=== PATIENT | female | born 1940 | race Hispanic/Latino ===

== ENCOUNTER 2017-09-14 10:58 | Emergency (ER) | payer MEDICARE ==
[2017-09-14 11:21] VITALS: BP 130/86; PULSE 77; RESP 20; TEMP 97.9; O2SAT 96
--- NOTE | 2017-09-14 11:59 | ED PDOC ---
Upper Extremity Pain/Injury Time Seen by Provider: 09/14/17 11:56 Chief Complaint (Nursing): Finger,Hand,&Wrist Chief Complaint (Provider): wrist pain bilateral History Per: Patient (76 y/o female h/o emphysema here with bilateral wrist pain alternating wrists. Denies any falls. Tried taking advil yesterday/pain only moderately controlled.) Past Medical History Reviewed: Historical Data, Nursing Documentation, Vital Signs Vital Signs: Last Vital Signs Temp 97.9 F 09/14/17 11:15 Pulse 77 09/14/17 11:15 Resp 20 09/14/17 11:15 BP 130/86 09/14/17 11:15 Pulse Ox 96 09/14/17 11:15 - Medical History PMH: Emphysema - Surgical History Surgical History: Cholecystectomy - Family History Family History: States: No Known Family Hx - Home Medications Home Medications: Ambulatory Orders Medication Instructions Recorded Naproxen 375 mg PO Q8 PRN #21 tablet 09/14/17 - Allergies Allergies/Adverse Reactions: Allergies Allergy/AdvReac Type Severity Reaction Status Date / Time No Known Allergies Allergy Verified 09/14/17 11:15 Review of Systems ROS Statement: Except As Marked, All Systems Reviewed And Found Negative Physical Exam - Reviewed Nursing Documentation Reviewed: Yes Vital Signs Reviewed: Yes - Physical Exam Appears: Positive for: Well, Non-toxic, No Acute Distress Head Exam: Positive for: ATRAUMATIC, NORMAL INSPECTION, NORMOCEPHALIC Skin: Positive for: Normal Color, Warm, DRY Eye Exam: Positive for: EOMI, Normal appearance, PERRL ENT: Positive for: Normal ENT Inspection Neck: Positive for: Normal, Painless ROM Cardiovascular/Chest: Positive for: Regular Rate, Rhythm Respiratory: Positive for: CNT, Normal Breath Sounds Gastrointestinal/Abdominal: Positive for: Normal Exam, Soft Back: Positive for: Normal Inspection Extremity: Positive for: Normal ROM, Swelling (right volar wrist with swelling mild. deviation noted at bilateral hands MCP joint suggestive of rheumatoid arthritis.) Neurologic/Psych: Positive for: Alert, Oriented - ECG O2 Sat by Pulse Oximetry: 96 - Progress ED Course And Treament: xry wrist bilateral: No fx. Osteopenia noted. Disposition - Clinical Impression Clinical Impression: Arthritis - Patient ED Disposition Is Patient to be Admitted: No - Disposition Referrals: Og Dykes MD [Staff Provider] - Disposition Time: 12:27 Condition: FAIR Prescriptions: Naproxen 375 mg PO Q8 PRN #21 tablet PRN Reason: Pain, Moderate (4-7) Instructions: Rheumatoid Arthritis (DC) Forms: [employer] (German)
--- NOTE | 2017-09-14 12:30 | RAD ---
PROCEDURE: Bilateral Wrists Radiographs. HISTORY: wrist pain COMPARISON: None. FINDINGS: BONES: Right Carpal Bones: Normal. No fracture or degenerative changes. Left Carpal Bones: Normal. No fracture or degenerative changes. Right Distal Radius and Ulna: No fracture or degenerative changes. Left Distal Radius and Ulna: No fracture or degenerative changes. JOINT SPACES: Right Wrist: Normal. No degenerative changes. Left Wrist: Normal. No degenerative changes. SOFT TISSUES: Right Wrist: Normal. Left Wrist: Normal. OTHER FINDINGS: None. IMPRESSION: Normal radiographs of the wrists.
== END 2017-09-14 12:56 | disposition home or self-care (01) ==
LOC: H.ER 10:58
DX: M19.031 Primary osteoarthritis, right wrist (principal); M19.032 Primary osteoarthritis, left wrist; J43.9 Emphysema, unspecified

== ENCOUNTER 2018-02-25 19:07 | Emergency (ER) | payer MEDICARE ==
[2018-02-25 19:14] VITALS: RESP 18; TEMP 98.3
--- NOTE | 2018-02-25 20:12 | ED PDOC ---
HPI: General Adult Time Seen by Provider: 02/25/18 19:13 Chief Complaint (Nursing): Hip Pain Chief Complaint (Provider): Hip Pain, Back Pain, Dizziness History Per: Patient History/Exam Limitations: no limitations Onset/Duration Of Symptoms: Hrs Current Symptoms Are (Timing): Still Present Additional Complaint(s): 77 year old female presents to the ED with complaints of dizziness, low back pain, and right hip pain onset 2 hours prior to arrival. States she was lying on the couch, rolled onto her side, and then developed hip pain. She noted the back pain and dizziness. Approximately 1 month ago patient had aneurysm repair at [facility] with extensive stay for rehab. Patient has not been able to walk since and has been incontinent since. Otherwise there were no complications. Denies any syncope, falls, trauma, chest pain, or difficulty breathing. Patient lives with family, who help take care of her. PMD: Dr. Miguel Angel Tolbert Medications: Methylprednisolone, Lisinopril, Gabapentin, methotrexate Past Medical History Reviewed: Historical Data, Nursing Documentation, Vital Signs Vital Signs: Last Vital Signs Temp 98.3 F 02/25/18 19:09 Pulse 90 02/25/18 19:09 Resp 18 02/25/18 19:09 BP 156/98 H 02/25/18 19:09 Pulse Ox 98 02/25/18 19:09 - Medical History PMH: Emphysema - Surgical History Surgical History: Cholecystectomy - Family History Family History: States: No Known Family Hx - Social History Current smoker - smoking cessation education provided: Yes (Heavy) - Home Medications Home Medications: Ambulatory Orders Medication Instructions Recorded Bimatoprost [Lumigan] 1 drop OU HS 02/25/18 Folic Acid 1 mg PO DAILY 02/25/18 Lisinopril [Zestril] 10 mg PO DAILY 02/25/18 Methotrexate 4 tab PO QWK 02/25/18 RX: Gabapentin [Neurontin] 1 cap PO HS 02/25/18 RX: Lisinopril [Zestril] 20 mg PO DAILY 02/25/18 RX: Methylprednisolone [Medrol 4 mg PO DAILY 02/25/18 Dose Pack (21 tabs)] - Allergies Allergies/Adverse Reactions: Allergies Allergy/AdvReac Type Severity Reaction Status Date / Time No Known Allergies Allergy Verified 09/14/17 11:15 Review of Systems ROS Statement: Except As Marked, All Systems Reviewed And Found Negative Constitutional: Negative for: Fever Cardiovascular: Negative for: Chest Pain Respiratory: Negative for: Shortness of Breath Musculoskeletal: Positive for: Back Pain, Leg Pain (Right Hip) Skin: Negative for: Rash Neurological: Positive for: Dizziness. Negative for: Change in Speech, Confusion, Altered Mental Status Physical Exam - Reviewed Nursing Documentation Reviewed: Yes Vital Signs Reviewed: Yes - Physical Exam Appears: Positive for: Non-toxic (but elderly appearing), No Acute Distress Head Exam: Positive for: ATRAUMATIC, NORMOCEPHALIC Skin: Positive for: Normal Color (without ecchymosis), Dry. Negative for: Cyanosis Eye Exam: Positive for: EOMI, Normal appearance, PERRL Neck: Positive for: Normal, Painless ROM, Supple Cardiovascular/Chest: Positive for: Regular Rate, Rhythm Respiratory: Positive for: Crackles (faint). Negative for: Accessory Muscle Use, Wheezing, Respiratory Distress Pulses-Radial (L): 2+ Pulses-Radial (R): 2+ Gastrointestinal/Abdominal: Positive for: Soft, Other (No bruit or thrill). Negative for: Tenderness, Mass (No palpable mass) Extremity: Positive for: Normal ROM (full ROM of all extremities), Capillary Refill (less than 2 sec), Swelling (Right leg appears mildly swollen, with 1+ pitting edema in comparison with left), Other (Extremities neither hot or cold to touch; bilateral groin without ecchymosis or swelling) Neurologic/Psych: Positive for: Alert, price accuracy supervisor II-XII (grossly intact), Oriented (x3) - Laboratory Results Result Diagrams: 02/25/18 20:04 02/25/18 20:04 - ECG O2 Sat by Pulse Oximetry: 98 (RA) Pulse Ox Interpretation: Normal Medical Decision Making Medical Decision Making: Time: 1938 Initial Impression: Work-up for infectious process causing cough with crackles, x-ray right hip to r/o injury Initial Plan: Chest x-ray, hip x-ray, and EKG ordered. Patient given percocet PO for pain control. Labs ordered including cardiac enzymes and coag panel. Possible CT if any abnormality seen on lab results, will reassess. Labs reviewed, trop negative. Still pending x-rays. 21:[address] Cesar Malagon at this time, pending imaging and final disposition. Scribe Attestation: Documented by Misty Cotton, acting as a scribe for Dr. Jane Lynn MD. Provider Scribe Attestation: All medical record entries made by the Scribe were at my direction and personally dictated by me. I have reviewed the chart and agree that the record accurately reflects my personal performance of the history, physical exam, medical decision making, and the department course for this patient. I have also personally directed, reviewed, and agree with the discharge instructions and dis position. Disposition - Clinical Impression Clinical Impression: Arthralgia - Disposition Referrals: Miguel Angel Tolbert MD [Primary Care Provider] - Disposition: Transfer of Care Disposition Time: 21:00 Condition: STABLE Additional Instructions: Followup with Dr. Tolbert in the office TOMORROW. Instructions: Muscle and Bone Pain (DC) Forms: [employer] (Greek) Patient Signed Over To: Cesar Malagon (pending imaging and final disposition) - [facility] Present On Arrival: None
[2018-02-25 20:23] LABS: BASO # 0.1 K/uL (0.0-0.2); BASO % 0.6 % (0.0-2.0); EOS # 0.1 K/uL (0.0-0.7); EOS % 0.6 % (0.0-4.0); HEMOGLOBIN 10.7 g/dL (12.0-16.0); LYMPH # 1.1 K/uL (1.0-4.3); LYMPH % 10.6 % (20.0-40.0); MEAN CELL VOLUME 83.8 fl (81.0-99.0); MEAN CORPUSCULAR HEMOGLOBIN 28.4 pg (27.0-31.0); MEAN CORPUSCULAR HGB CONC 33.9 g/dL (33.0-37.0); MEAN PLATELET VOLUME 6.1 fl (7.2-11.7); MONO # 0.7 K/uL (0.0-0.8); MONO % 6.4 % (0.0-10.0); NEUT # 8.8 K/uL (1.8-7.0); NEUT % 81.8 % (50.0-75.0); RBC 3.78 Mil/uL (3.80-5.20); RED CELL DISTRIBUTION WIDTH 15.8 % (11.5-14.5); WHITE BLOOD COUNT 10.7 K/uL (4.8-10.8)
[2018-02-25 20:27] LABS: VENOUS BLOOD GAS BASE EXCESS 1.3 mmol/L (0.0-2.0); VENOUS BLOOD GAS PCO2 40 mmHg (40-60); VENOUS BLOOD GAS PO2 35 mm/Hg (30-55); VENOUS BLOOD PH 7.42 (7.32-7.43)
[2018-02-25 20:29] LABS: PROTHROMBIN TIME 11.4 Seconds (9.8-13.1)
[2018-02-25 20:31] LABS: PARTIAL THROMBOPLASTIN TIME 31.6 Seconds (25.6-37.1)
[2018-02-25 20:32] LABS: ALB/GLOB RATIO 0.9 (1.0-2.1); ALBUMIN 3.6 g/dL (3.5-5.0); ALT/SGPT 21 U/L (9-52); AST/SGOT 18 U/L (14-36); BLOOD UREA NITROGEN 13 mg/dl (7-17); GFR NON-AFRICAN AMERICAN > 60
[2018-02-25 20:37] LABS: SQUAMOUS EPITHIAL 1 /hpf (0-5); URINE BILIRUBIN NEGATIVE (NEGATIVE); URINE BLOOD NEGATIVE (NEGATIVE); URINE CLARITY CLEAR (Clear); URINE COLOR YELLOW (YELLOW); URINE GLUCOSE (UA) NEG (Normal); URINE LEUKOCYTE ESTERASE NEG Leu/uL (Negative); URINE PROTEIN NEGATIVE (NEGATIVE); URINE UROBILINOGEN 0.2-1.0 mg/dL (0.2-1.0)
[2018-02-25 20:44] LABS: B-TYPE NATRIURETIC PEPTIDE 1000 pg/ml (0-900)
[2018-02-25] MEDS ORDERED: Oxycodone/Acetaminophen 5/325 mg Tab PO STA (20:45)
[2018-02-25] MEDS ORDERED: Oxycodone/Acetaminophen 5/325 mg Tab ONE (20:59)
--- NOTE | 2018-02-25 21:42 | ED PDOC ---
- Laboratory Results Result Diagrams: 02/25/18 20:04 02/25/18 20:04 - ECG O2 Sat by Pulse Oximetry: 98 (RA) Pulse Ox Interpretation: Normal Medical Decision Making Medical Decision Makin:00 Patient endorsed to me from Dr. Jane Lynn, pending pelvic x-ray and reevaluation. X-rays reviewed, no acute fracture. Discussed results with patient and family. Upon provider reevaluation patient is medically stable, and requires no further treatment in the ED at this time. Patient will be discharged home. Counseling was provided and all questions were answered regarding diagnosis and need for follow up with PMD. There is agreement to discharge plan. Return if symptoms persist or worsen. Scribe Attestation: Documented by Misty Cotton, acting as a scribe for Dr. Cesar Malagon MD. Provider Scribe Attestation: All medical record entries made by the Scribe were at my direction and personally dictated by me. I have reviewed the chart and agree that the record accurately reflects my personal performance of the history, physical exam, medical decision making, and the department course for this patient. I have also personally directed, reviewed, and agree with the discharge instructions and disposition. Disposition Counseled Patient/Family Regarding: Studies Performed, Diagnosis, Need For Followup - Clinical Impression Clinical Impression: Arthralgia - POA Present On Arrival: None - Disposition Referrals: Miguel Angel Tolbert MD [Primary Care Provider] - Disposition: Routine/Home Disposition Time: 22:10 Condition: STABLE Additional Instructions: Followup with Dr. Tolbert in the office TOMORROW. Instructions: Muscle and Bone Pain (DC) Forms: [employer] (Malay)
[2018-02-25 22:22] VITALS: BP 136/88; PULSE 86
[2018-02-26 04:01] VITALS: O2SAT 98
--- NOTE | 2018-02-26 09:09 | CARD ---
APPROVED REPORT Date of service: 02/25/2018 EKG Measurement Heart [id number] <Conclusion> Sinus rhythm with premature atrial complexes Possible anterior infarct, age undetermined Abnormal ECG
--- NOTE | 2018-02-26 09:37 | RAD ---
Date of service: 02/25/2018 HISTORY: cough COMPARISON: Chest radiographs 10/28/2015. TECHNIQUE: Chest PA and lateral FINDINGS: LUNGS: COPD changes are reiterated including biapical pulmonary fibrosis, right greater than left. No acute alveolitis bilaterally. Hyperinflation pattern persists including anterior posterior chest diameter increase and flattened hemidiaphragms bilaterally. PLEURA: No significant pleural effusion identified. No pneumothorax apparent. CARDIOVASCULAR: Normal. OSSEOUS STRUCTURES: No significant abnormalities. VISUALIZED UPPER ABDOMEN: Normal. OTHER FINDINGS: None. IMPRESSION: Stable COPD. No acute cardiopulmonary changes.
--- NOTE | 2018-02-26 09:45 | RAD ---
Date of service: 02/25/2018 PROCEDURE: RIGHT HIP WITH PELVIS RADIOGRAPHS HISTORY: acute right hip pain COMPARISON: None available. TECHNIQUE: Frontal views of the pelvis and right hip joints been submitted with the right frog-leg lateral view as well. FINDINGS: No acute fracture dislocation. No destructive bony lesion identified. Degenerative cortical sclerosis and osteophyte development are seen at the right hip joint compatible osteoarthritis of moderate severity. Similar changes are present at the right sacroiliac joint. Diffuse osteopenia suggests osteoporosis. The pelvic ring appears intact including pubic symphysis with no destructive bony lesion appreciable. Sacrum is obscured by stent graft device in the proximal common iliac distribution with the arcades appear unremarkable as imaged. Inferior portion of aortic iliac stent graft is identified. Vascular calcifications seen in the bilateral inferior pelvic and inguinal soft tissues. IMPRESSION: No acute fracture or dislocation right hip joint. Diffuse osteopenia suggests osteoporosis. Incidental aortic iliac stent graft identified.
== END 2018-02-25 22:21 | disposition home or self-care (01) ==
LOC: SUPCPDRO 19:07 → H.ER 19:07
DX: M54.9 Dorsalgia, unspecified (principal); M25.559 Pain in unspecified hip; R42 Dizziness and giddiness; Z86.79 Personal history of other diseases of the circulatory system; Z79.899 Other long term (current) drug therapy; J43.9 Emphysema, unspecified; F17.200 Nicotine dependence, unspecified, uncomplicated